=== PATIENT | female | born 1950 | race Caucasian/White ===

== ENCOUNTER 2025-02-24 14:48 | Emergency (ER) | payer MEDICARE, BC ==
[2025-02-24] MEDS: LORazepam 2 MG/ML SDV IM ONE (15:55)
== END 2025-02-24 17:43 | disposition home or self-care (01) ==
LOC: JP.ED 14:48
DX: S01.312A Laceration without foreign body of left ear, initial encounter (principal); S00.03XA Contusion of scalp, initial encounter; Z79.899 Other long term (current) drug therapy; Z79.84 Long term (current) use of oral hypoglycemic drugs; W10.8XXA Fall (on) (from) other stairs and steps, initial encounter
CPT/HCPCS: 12011; 70450; 72125; 72128; 73080; 76377; 96372; 99284; J2060